=== PATIENT | female | born 1980 | race Caucasian/White ===

== ENCOUNTER 2018-05-19 10:38 | Emergency (ER) | payer BC ==
[2018-05-19 10:45] VITALS: BP 139/70
[2018-05-19] MEDS ORDERED: Sodium Chloride 0.9% 10 ML Syringe FLUSH PRN (10:47)
[2018-05-19] MEDS: HYDROmorphone 1 MG/ML Syringe IVPUSH ONE (11:09)
--- NOTE | 2018-05-19 11:34 | EDM.PDOC ---
ED HPI GENERAL MEDICAL PROBLEM - General Chief Complaint: Upper Extremity Injury/Pain Stated Complaint: LEFT WRIST INJURY Time Seen by Provider: 05/19/18 10:38 Source of Information: Reports: Patient History Limitations: Reports: No Limitations - History of Present Illness INITIAL COMMENTS - FREE TEXT/NARRATIVE: Pt. presents to ER with complaints of L wrist pain. Pt. states that she fell up the stairs, landing on an outstretched hand. States that the discomfort is isolated to the L wrist. No injury to remainder of arm. Did not strike head. She denies any paresthesia to the distal portion of the extremity. Onset: Today Duration: Constant Quality: Reports: Ache Severity: Severe Left Wrist Pain Score (Numeric/FACES): 7 - Related Data Allergies Allergy/AdvReac Type Severity Reaction Status Date / Time cyclobenzaprine HCl Allergy Hives Verified 09/03/17 12:16 [From Flexeril] Home Meds: Home Meds Ibuprofen 600 mg PO Q6HR PRN 05/15/17 [History] valACYclovir [Valtrex] 1,000 mg PO DAILY PRN 05/15/17 [History] Acetaminophen [Tylenol Extra Strength] 1,000 mg PO Q6H PRN 09/03/17 [History] Past Medical History - Past Health History Medical/Surgical History: Denies Medical/Surgical History Social & Family History - Tobacco Use Smoking Status *Q: Current Every Day Smoker Years of Tobacco use: 10 Packs/Tins Daily: 1 Review of Systems - Review of Systems Review Of Systems: See Below Musculoskeletal: Reports: Arm Pain, Other (L wrist pain, minimal deformity) Skin: Reports: No Symptoms Neurological: Reports: No Symptoms ED EXAM, GENERAL - Physical Exam Exam: See Below Peripheral Pulses: 4+: Radial (L), Radial (R) Extremities: Arm Pain (minimal deformity to L wrist. No crepitus. CMS intact. No ecchymosis noted. Minimal edema.), Limited Range of Motion, Other ED TRAUMA EXTREMITY PROCEDURES - Splinting Left Upper Extremity Pre-Procedure NV Status: Normal Post-Procedure NV Status: Normal Splint Material: Fiberglass Splint Design: Volar Applied & Form Fitted By: Provider Provider Post-Splint Application NV Check: NV Status Normal, Good Position Complications: No Course - Vital Signs Last Recorded V/S: Last Vital Signs Temp 36.4 C 05/19/18 10:38 Pulse 87 05/19/18 10:38 Resp 20 05/19/18 10:38 BP 139/70 05/19/18 10:38 Pulse Ox 100 05/19/18 10:38 - Orders/Labs/Meds Orders: Active Orders 24 hr Category Date Time Status Wrist Comp Min 3V Lt [CR] Stat Exams 05/19/18 10:57 Taken Sodium Chloride 0.9% [Saline Flush] Med 05/19/18 10:47 Active 10 ml FLUSH ASDIRECTED PRN Peripheral IV Insertion Adult [OM.PC] Routine Oth 05/19/18 10:47 Ordered Medication Orders Sodium Chloride (Saline Flush) 10 ml FLUSH ASDIRECTED PRN PRN Reason: Keep Vein Open Meds: Medications Generic Name Dose Route Start Last Admin Trade Name Freq PRN Reason Stop Dose Admin Sodium Chloride 10 ml 05/19/18 10:47 Saline Flush FLUSH ASDIRECTED PRN Keep Vein Open Discontinued Medications Generic Name Dose Route Start Last Admin Trade Name Freq PRN Reason Stop Dose Admin Hydromorphone HCl 1 mg 05/19/18 10:47 05/19/18 11:09 Dilaudid IVPUSH 05/19/18 10:48 1 mg ONETIME ONE Administration - Radiology Interpretation Free Text/Narrative:: L distal radius fracture noted Departure - Departure Time of Disposition: 11:38 Disposition: Home, Self-Care 01 Condition: Good Clinical Impression: Fracture of radius - Discharge Information Referrals: Shwetha Gonzalez MD [Primary Care Provider] - - My Orders Last 24 Hours: My Active Orders 05/19/18 10:47 Sodium Chloride 0.9% [Saline Flush] 10 ml FLUSH ASDIRECTED PRN Peripheral IV Insertion Adult [OM.PC] Routine 05/19/18 10:57 Wrist Comp Min 3V Lt [CR] Stat - Assessment/Plan Last 24 Hours: My Active Orders 05/19/18 10:47 Sodium Chloride 0.9% [Saline Flush] 10 ml FLUSH ASDIRECTED PRN Peripheral IV Insertion Adult [OM.PC] Routine 05/19/18 10:57 Wrist Comp Min 3V Lt [CR] Stat Plan: volar splint was placed. IV access established and she was given 1 mg of dilaudid IV. Ortho was consulted and we will discuss alf management when he calls back. Pt. was started on norco 5/325mg 1 tab every 4-6 hours as needed for pain.
[2018-05-19] MEDS: Take Home: Acetaminophen/HYDROcodone 325-5 MG, 5 Tab Pack PO ONE (11:50)
== END 2018-05-19 11:57 | disposition home or self-care (01) ==
LOC: VM.ED 10:38
DX: S52.502A Unspecified fracture of the lower end of left radius, initial encounter for closed fracture (principal); F17.210 Nicotine dependence, cigarettes, uncomplicated; Z88.8 Allergy status to other drugs, medicaments and biological substances; Z79.899 Other long term (current) drug therapy; W10.9XXA Fall (on) (from) unspecified stairs and steps, initial encounter
CPT/HCPCS: 29125; 73110; 96374; 99283; A9270; J1170

== ENCOUNTER 2019-04-10 18:22 | Observation (INO) | payer BC, MEDICAID ==
[2019-04-10] MEDS ORDERED: Ondansetron 4 MG/2 ML SDV IVPUSH ONE (18:34)
[2019-04-10] MEDS ORDERED: Sodium Chloride 0.9% 1,000 ML IV SCH (18:45)
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
[2019-04-10 19:15] LABS: ANION GAP 19.7 mmol/L (10-20); CHLORIDE,CL 108 mmol/L (98-107); SODIUM,NA 144 mmol/L (136-145)
[2019-04-10 19:31] LABS: BUPRENORPHINE,URINE NEGATIVE (NEGATIVE); MARIJUANA,URINE NEGATIVE (NEGATIVE); METHYLENEDIOXYMETHAMP,UR NEGATIVE (NEGATIVE); PHENCYCLIDINE,URINE NEGATIVE (NEGATIVE)
--- NOTE | 2019-04-10 19:49 | CR ---
[id number] RAD/RAD Abd Flat and Upright 2V Exam: RAD Abd Flat and Upright 2V Clinical Data: ABDOMINAL PAIN. TRAUMA. COMPARISON: NO PREVIOUS SIMILAR EXAM IS AVAILABLE FINDINGS: There is significant gastric distention. There is no free air. The bowel gas pattern otherwise is unremarkable. There is no organomegaly or pathologic calcification. Consider CT if needed. IMPRESSION: SIGNIFICANT GASTRIC DISTENTION. Santosh Bacon MD 04/10/19 [phone] Thank you for allowing us to participate in the care of your patient.
--- NOTE | 2019-04-10 19:50 | CR ---
[id number] RAD/RAD Chest PA And Lateral EXAM: RAD Chest PA And Lateral CLINICAL DATA: TRAUMA COMPARISON: NO PREVIOUS SIMILAR EXAM IS AVAILABLE. FINDINGS: The lungs are clear. The cardiomediastinal contour is normal. No obvious rib fractures are seen. There is no pneumothorax. The regional bones and soft tissues are unremarkable. IMPRESSION: NO ACUTE PROCESS. Santosh Bacon MD 04/10/19 2184 Thank you for allowing us to participate in the care of your patient.
[2019-04-10] MEDS ORDERED: Ondansetron 4 MG Tab.DIS PO PRN (20:16)
[2019-04-10] MEDS ORDERED: Albuterol/Ipratropium 3.0-0.5 MG/3 ML Neb Soln NEB PRN (20:16)
[2019-04-10] MEDS ORDERED: Ketorolac 30 MG/ML SDV IVPUSH PRN (20:16)
[2019-04-10] MEDS ORDERED: Zolpidem 5 MG Tab PO PRN (20:16)
[2019-04-10] MEDS ORDERED: Acetaminophen 325 MG Tab PO PRN (20:16)
[2019-04-10] MEDS ORDERED: Sodium Chloride 0.9% 1,000 ML IV ONE (20:45)
[2019-04-10] MEDS: Sodium Chloride 0.9% 1,000 ML IV SCH ×2 (20:52→23:25)
[2019-04-10] MEDS: buPROPion 150 MG Tab.ER PO SCH (21:47)
[2019-04-10] MEDS ORDERED: diphenhydrAMINE 25 MG Cap PO STA (23:09)
[2019-04-11 07:14] LABS: CHLORIDE,CL 112 mmol/L (98-107); SODIUM,NA 144 mmol/L (136-145)
[2019-04-11] MEDS: buPROPion 150 MG Tab.ER PO SCH (07:15)
[2019-04-11] MEDS ORDERED: LORazepam 1 MG Tab PO PRN (08:46)
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
[2019-04-11 11:09] VITALS: BP 110/74; PULSE 77
== END 2019-04-11 14:45 | disposition home or self-care (01) ==
LOC: VM.ED 18:22 → VM.MS 19:36
PROVIDERS: ADMIT Nurse Practitioner Family; ATTEND Nurse Practitioner Family
DX: F15.20 Other stimulant dependence, uncomplicated (principal); F41.9 Anxiety disorder, unspecified; Z88.8 Allergy status to other drugs, medicaments and biological substances
CPT/HCPCS: 36415; 71046; 74019; 80048; 80053; 80305; 85025; 96361; 96374; 99284; A9270; G0480; J1885; J2405; J3360; J7030; 96375; 99217; 99219; G0378

== ENCOUNTER 2019-05-11 07:39 | Emergency (ER) | payer MEDICAID ==
[2019-05-11] MEDS ORDERED: GI Cocktail Oral Solution 30 ML PO ONE (07:52)
[2019-05-11] MEDS ORDERED: Sodium Chloride 0.9% 1,000 ML IV ONE (07:53)
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
[2019-05-11] MEDS ORDERED: fentaNYL 100 MCG/2 ML SDV IVPUSH ONE (08:19)
[2019-05-11] MEDS ORDERED: Pantoprazole 40 MG Vial IVPUSH ONE (08:21)
[2019-05-11 08:27] LABS: CHLORIDE,CL 108 mmol/L (98-107); SODIUM,NA 143 mmol/L (136-145)
[2019-05-11 08:28] VITALS: BP 106/68; PULSE 58
[2019-05-11 08:28] LABS: ANION GAP 16.1 mmol/L (10-20)
[2019-05-11 08:57] LABS: BUPRENORPHINE,URINE NEGATIVE (NEGATIVE); MARIJUANA,URINE NEGATIVE (NEGATIVE); METHYLENEDIOXYMETHAMP,UR NEGATIVE (NEGATIVE); PHENCYCLIDINE,URINE NEGATIVE (NEGATIVE)
== END 2019-05-11 10:01 | disposition home or self-care (01) ==
LOC: VM.ED 07:39
DX: K21.0 Gastro-esophageal reflux disease with esophagitis (principal); F41.9 Anxiety disorder, unspecified; F43.9 Reaction to severe stress, unspecified; Z88.8 Allergy status to other drugs, medicaments and biological substances
CPT/HCPCS: 80053; 80305; 81001; 82274; 83690; 84484; 93005; 96361; 96374; 96375; 99285; A9270; C9113; J3010; J7030

== ENCOUNTER 2020-06-01 11:24 | Emergency (ER) | payer OTHER, MEDICAID ==
[2020-06-01 11:28] VITALS: BP 128/88; PULSE 86
[2020-06-01] MEDS ORDERED: Flumazenil 0.1 MG/ML 5 ML MDV IVPUSH PRN (11:30)
[2020-06-01] MEDS ORDERED: LORazepam 2 MG/ML SDV IM ONE (11:30)
[2020-06-01 11:48] LABS: BARBITURATE SCREEN,URINE NEGATIVE (NEGATIVE); BENZODIAZEPINES SCREEN,URINE NEGATIVE (NEGATIVE); EDDP,URINE SCREEN NEGATIVE (NEGATIVE); METHAMPHETAMINE SCREEN, URINE NEGATIVE (NEGATIVE); TCA SCREEN,URINE NEGATIVE (NEGATIVE); THC SCREEN,URINE 50 NG/ML NEGATIVE (NEGATIVE)
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
== END 2020-06-01 12:10 | disposition home or self-care (01) ==
LOC: VM.ED 11:24
DX: F41.0 Panic disorder [episodic paroxysmal anxiety] (principal); Z88.8 Allergy status to other drugs, medicaments and biological substances
CPT/HCPCS: 80305; 81003; 96372; 99284; J2060